=== PATIENT | female | born 1965 | race African-American/Black ===

== ENCOUNTER → 2021-02-03 | Emergency (ER) | payer OTHER ==
[~2021-02-03] VITALS: Ht 157.5 cm; Wt 59.9 kg
[~2021-02-03] MED LIST: CIPRO500 MG PO; INTESTINEX680 M1 PO; KETO10TA2 PO; PERIOGARD473 ML MM; ZYRTEC10 M3 PO
== END | disposition home or self-care (01) ==
LOC: ER 18:28
DX: S01.511A Laceration without foreign body of lip, initial encounter (principal); V00.141A Fall from scooter (nonmotorized), initial encounter; Y92.89 Other specified places as the place of occurrence of the external cause